=== PATIENT | female | born 1955 | race Caucasian/White ===

== ENCOUNTER 2021-09-21 10:08 | Inpatient (IN) | payer MEDICARE, OTHER ==
[~2021-09-21] VITALS: Ht 167.6 cm; Wt 93.0 kg
[2021-09-21 11:06] LABS: HEMOGLOBIN 13.4 gm/dl (12.3-15.3); RED BLOOD COUNT 4.44 M/UL (4.00-5.10); WHITE BLOOD COUNT 27.5 K/UL (4.5-11.0)
[2021-09-21 11:27] LABS: BUN/CREATININE RATIO 43 (0-10)
[2021-09-22 03:48] LABS: HEMOGLOBIN 10.4 gm/dl (12.3-15.3); RED BLOOD COUNT 3.46 M/UL (4.00-5.10); WHITE BLOOD COUNT 16.2 K/UL (4.5-11.0)
[2021-09-22 03:51] LABS: BUN/CREATININE RATIO 41 (0-10)
[2021-09-23 10:33] LABS: HEMOGLOBIN 10.3 gm/dl (12.3-15.3); RED BLOOD COUNT 3.48 M/UL (4.00-5.10); WHITE BLOOD COUNT 15.4 K/UL (4.5-11.0)
[2021-09-24 07:11] LABS: RED BLOOD COUNT 3.52 M/UL (4.00-5.10); WHITE BLOOD COUNT 12.7 K/UL (4.5-11.0)
[2021-09-24 07:58] LABS: BUN/CREATININE RATIO 25 (0-10)
[2021-09-25 06:47] LABS: HEMOGLOBIN 10.1 gm/dl (12.3-15.3); RED BLOOD COUNT 3.44 M/UL (4.00-5.10); WHITE BLOOD COUNT 12.4 K/UL (4.5-11.0)
[2021-09-25 07:28] LABS: BUN/CREATININE RATIO 19 (0-10)
[2021-09-26 03:44] LABS: HEMOGLOBIN 10.7 gm/dl (12.3-15.3); RED BLOOD COUNT 3.65 M/UL (4.00-5.10)
[2021-09-26 04:08] LABS: BUN/CREATININE RATIO 9 (0-10)
[2021-09-27 08:53] LABS: HEMOGLOBIN 10.4 gm/dl (12.3-15.3); RED BLOOD COUNT 3.51 M/UL (4.00-5.10); WHITE BLOOD COUNT 12.1 K/UL (4.5-11.0)
[2021-09-28] MEDS ORDERED: HYDROCODON-ACE1 EAC4 PO (09:22)
[2021-10-01 03:28] LABS: HEMOGLOBIN 9.2 gm/dl (12.3-15.3); RED BLOOD COUNT 3.08 M/UL (4.00-5.10); WHITE BLOOD COUNT 10.3 K/UL (4.5-11.0)
[2021-10-01 04:00] LABS: BUN/CREATININE RATIO 11 (0-10)
[2021-10-02] MEDS ORDERED: AUGMENTIN 500-500 MG PO (14:46)
== END 2021-10-02 15:34 | disposition home or self-care (01) | DRG 338 ==
LOC: ER1 10:08 → CDU 14:55 → M/S 14:55
PROVIDERS: Emergency Medicine; Surgery; ADMIT Surgery
PROC: 0DTJ4ZZ Resection of Appendix, Percutaneous Endoscopic Approach (ICD-10-PCS; principal; 2021-09-21 15:05)
DX: K35.32 Acute appendicitis with perforation, localized peritonitis, and gangrene, without abscess (principal); J69.0 Pneumonitis due to inhalation of food and vomit; Z20.822 Contact with and (suspected) exposure to COVID-19; K65.1 Peritoneal abscess; E87.1 Hypo-osmolality and hyponatremia; K56.0 Paralytic ileus; E86.0 Dehydration; E80.6 Other disorders of bilirubin metabolism; E87.6 Hypokalemia; E66.01 Morbid (severe) obesity due to excess calories; F17.210 Nicotine dependence, cigarettes, uncomplicated; Z90.49 Acquired absence of other specified parts of digestive tract; Z98.890 Other specified postprocedural states; Z68.33 Body mass index [BMI] 33.0-33.9, adult
CPT/HCPCS: 36415; 71045; 71046; 80048; 80053; 81001; 83605; 83735; 84100; 84132; 85025; 85027; 86140; 87040; 87086; 96374; 96375; 99285; J0696; J1100; J1170; J1650; J1885; J1956; J2001; J2185; J2270; J2405; J2543; J2704; J2710; J3010; J3480

== ENCOUNTER → 2021-10-23 | Outpatient (CLI) | payer MEDICARE, OTHER ==
[~2021-10-23] MED LIST: AUGMENTIN 500-500 MG PO; HYDROCODON-ACE1 EAC4 PO
== END ==
LOC: MAMO 11:00
DX: Z12.31 Encounter for screening mammogram for malignant neoplasm of breast (principal)
CPT/HCPCS: 77063; 77067

== ENCOUNTER → 2021-12-17 | Outpatient (CLI) | payer MEDICARE, OTHER | LOC: US 13:30 | DX: R92.8 Other abnormal and inconclusive findings on diagnostic imaging of breast (principal) | CPT/HCPCS: 76642-LT; 77065; G0279 ==